=== PATIENT | male | born 1990 | race Asian ===

== ENCOUNTER 2023-04-17 20:49 | Emergency (ER) | payer OTHER ==
[~2023-04-17] VITALS: Ht 170.2 cm; Wt 74.8 kg
[2023-04-17 20:52] VITALS: BP 126/79; PULSE 107; RESP 14; TEMP 97.4; O2SAT 100
[2023-04-17 21:01] VITALS: BP 126/79; PULSE 107; RESP 16; TEMP 98; O2SAT 99
[2023-04-17 21:22] VITALS: BP 126/79; PULSE 107; RESP 16; TEMP 98; O2SAT 99
== END 2023-04-17 21:22 ==
LOC: MED 20:49
DX: Z02.89 Encounter for other administrative examinations (principal); V49.88XA Car occupant (driver) (passenger) injured in other specified transport accidents, initial encounter; Y93.89 Activity, other specified; Y92.89 Other specified places as the place of occurrence of the external cause; Y99.8 Other external cause status
CPT/HCPCS: 99283